=== PATIENT | male | born 1980 | race Caucasian/White ===

== ENCOUNTER → 2020-03-29 | Outpatient (CLI) | payer OTHER | LOC: COL.RAD 07:52 | DX: K76.0 Fatty (change of) liver, not elsewhere classified (principal); R51 Headache; R50.9 Fever, unspecified ==

== ENCOUNTER → 2020-04-25 | Outpatient (CLI) | payer OTHER ==
[~2020-04-25] VITALS: Ht 175.3 cm; Wt 87.0 kg
[2020-04-25] VITALS (15 sets, daily range): BP systolic 51–145; BP diastolic 35–91; PULSE 79–99
[~2020-04-25] MED LIST: PHENERGAN 25 TA25 MG PO
[2020-04-25 10:40] LABS: INR 1.3 (0.8-3.0); PROTHROMBIN TIME 14.6 SECONDS (9.7-12.8)
--- NOTE | 2020-04-25 10:48 | NUR ---
PT TAKEN TO CT AMBULATROY AND PLACED ON TABLE. MONITORING EQUIPMENT PLACED. PT SCANNED
--- NOTE | 2020-04-25 11:00 | NUR ---
GIVEN SIVP VERSED 1 MG AND FENTANYL 25 MCG
== END ==
LOC: COL.RAD 09:29
PROVIDERS: Internal Medicine Gastroenterology
DX: K76.0 Fatty (change of) liver, not elsewhere classified (principal)
CPT/HCPCS: J2250; J3010

== ENCOUNTER 2020-09-11 16:21 | Inpatient (IN) | payer OTHER ==
[~2020-09-11] VITALS: Ht 175.3 cm; Wt 84.3 kg
[2020-09-11 17:21] VITALS: BP 124/70; PULSE 113; TEMP 99.2
[2020-09-11] MEDS ORDERED: XIFAXAN550 MG PO (17:40)
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
[2020-09-11 18:32] LABS: HEMATOCRIT 39.4 % (42.0-52.0); HEMOGLOBIN 13.7 g/dl (13.5-18.0)
[2020-09-11 18:44] VITALS: PULSE 101
[2020-09-11 19:23] VITALS: BP 129/72; PULSE 99; TEMP 97
--- NOTE | 2020-09-11 20:00 | NUR ---
Assessment complete. Patient complains of epigastric pain 8/10 and nausea; PRN morphine and zofran administered at this time. NS infusing at 125 ml/hr. Will continue to monitor.
[2020-09-11 23:31] VITALS: BP 113/76; PULSE 91; TEMP 99
[2020-09-12] VITALS (9 sets, daily range): BP systolic 111–138; BP diastolic 53–78; PULSE 53–111; TEMP 98.3–98.8
[2020-09-12 02:20] LABS: HEMOGLOBIN 12.5 g/dl (13.5-18.0)
[2020-09-12 02:21] LABS: HEMATOCRIT 35.9 % (42.0-52.0)
[2020-09-12 06:38] LABS: BASO % 0.2 % (0.0-2.0); EOS % 0.2 % (0-4.0); GRAN # 2.1 (1.4-6.5); GRAN % 50.5 % (42.2-75.2); HEMATOCRIT 37.3 % (42.0-52.0); HEMOGLOBIN 12.8 g/dl (13.5-18.0); LYMPH # 1.4 (1.2-3.4); MEAN CELL VOLUME 92 fl (80.0-100.0); MEAN CORPUSCULAR HEMOGLOBIN 32 pg (27.0-31.0); MEAN CORPUSCULAR HGB CONC 34 g/dl (33.0-37.0); MEAN PLATELET VOLUME 11.3 fl (7.4-10.4); MONO # 0.6 (0.1-0.6); MONO % 14.6 % (1.7-9.3); PLATELET COUNT 61 K/mm3 (130-400); RED BLOOD COUNT 4.06 M/mm3 (4.20-5.60); REDCELL DISTRIBUTION WIDTH-CV 14.6 % (11.5-14.5)
[2020-09-12 06:53] LABS: ALBUMIN 4.1 gm/dL (3.5-5.0); CALCIUM 8.7 mg/dL (8.4-10.2); CREATININE, serum 0.76 (0.66-1.25); TOTAL PROTEIN 6.7 gm/dL (6.4-8.2)
[2020-09-12 07:04] LABS: POTASSIUM 3.6 mmol/L (3.4-5.0)
--- NOTE | 2020-09-12 08:34 | NUR ---
Assessment completed, alert/oriented, vital signs stable, rating pain 8/10 in abdomen and receiving MS 2mg IV prn/ reports this brings it down to about a 5/10, N/V is improved, no emesis noted during the night, abd is soft and BS +, heart RRR, lungs CTA/ no resp.difficulty noted, hemaglobin stable, EGD scheduled for this afternoon, denies other needs at this time
--- NOTE | 2020-09-12 09:25 | NUR ---
[facility] met with the patient and his , Sudhakar (ph#[phone]), to discuss discharge plan. The patient lives in [place] with his and three children. He reports independence with ADLs and does not have any DME. The patient states that he was just assigned to a provider at [facility] last week. He states that he is not for sure what their name is. He receives his medications at [facility]. The patient does not have a DPOA-HC and he was not interested in completing a DPOA-HC at this time. The patient plans to return home with his family upon discharge. No additional needs at this time.
[2020-09-12 09:44] LABS: HEMOGLOBIN 12.6 g/dl (13.5-18.0)
[2020-09-12 10:07] LABS: HEMATOCRIT 36.8 % (42.0-52.0)
--- NOTE | 2020-09-12 10:42 | NUR ---
First visit from the community center director. No needs right now.
--- NOTE | 2020-09-12 14:35 | NUR ---
Patient back to room 311 from procedure. A&O, drowsy. Steady on feet. at the bedside. Post op VS monitored. No reported pain or discomfort. Will continue to monitor. Call light within reach
[2020-09-12] MEDS ORDERED: PROTONIX 40MG T40 MG PO (15:11)
[2020-09-12] MEDS ORDERED: ROXICODONE 55 MG/TAB PO (16:38)
[2020-09-12] MEDS ORDERED: ZOFRAN ODT4 MG PO (16:38)
--- NOTE | 2020-09-12 16:52 | NUR ---
Discharge paperwork reviewed with the patient and family. Patient verbalized an understanding to follow doctors orders. IV removed, tip intact, patient tolerated well. Patient independent in the room. No further needs expressed from the patient. Patient walked out to vehicle with nursing staff and . Personal belongings and discharge paperwork with patient
== END 2020-09-12 17:04 | disposition home or self-care (01) | DRG 368 ==
LOC: MEDICAL 17:11
PROVIDERS: Internal Medicine Gastroenterology; ADMIT Hospitalist
PROC: 0DB78ZX Excision of Stomach, Pylorus, Via Natural or Artificial Opening Endoscopic, Diagnostic (ICD-10-PCS; 2020-09-12)
PROC: 0DB38ZX Excision of Lower Esophagus, Via Natural or Artificial Opening Endoscopic, Diagnostic (ICD-10-PCS; principal; 2020-09-12 13:30)
DX: K20.91 Esophagitis, unspecified with bleeding (principal); K29.71 Gastritis, unspecified, with bleeding; K21.9 Gastro-esophageal reflux disease without esophagitis; K75.81 Nonalcoholic steatohepatitis (NASH); R00.0 Tachycardia, unspecified; Z20.828 Contact with and (suspected) exposure to other viral communicable diseases; D64.9 Anemia, unspecified
CPT/HCPCS: 99222-AI; 99232-AI; 99239; C9113; J2270; J2405; J7030

== ENCOUNTER 2021-03-15 06:48 | Outpatient (CLI) | payer OTHER ==
[~2021-03-15] VITALS: Ht 175.3 cm; Wt 77.4 kg
[~2021-03-15 06:48] MED LIST changes: +PROTONIX 40MG T40 MG PO; +ROXICODONE 55 MG/TAB PO; +XIFAXAN550 MG PO; +ZOFRAN ODT4 MG PO
[2021-03-15 07:52] VITALS: BP 130/89; PULSE 105; TEMP 98.1
[2021-03-15 09:35] VITALS: BP 144/97; PULSE 94
--- NOTE | 2021-03-15 09:35 | NUR ---
Pt returned from procedure,report from Shukri Hayes.
[2021-03-15] MEDS ORDERED: PROAMATINE 5MG T5 MG PO (09:58)
--- NOTE | 2021-03-15 10:23 | NUR ---
Discharge instructions givne to pt.Pt verbalizes understanding.INT removed,catheter tip intct.Pt escorted out by this nurse.
== END 2021-03-15 10:24 | disposition home or self-care (01) ==
LOC: COL.CAR 06:48
DX: R42 Dizziness and giddiness (principal); R00.0 Tachycardia, unspecified; K76.9 Liver disease, unspecified; G93.40 Encephalopathy, unspecified; G43.909 Migraine, unspecified, not intractable, without status migrainosus; E55.9 Vitamin D deficiency, unspecified; Z20.822 Contact with and (suspected) exposure to COVID-19; Z79.899 Other long term (current) drug therapy; Z82.3 Family history of stroke